=== PATIENT | female | born 1960 | race Caucasian/White ===

== ENCOUNTER 2018-04-03 16:17 | Emergency (ER) | payer BC ==
[~2018-04-03] VITALS: Ht 162.6 cm; Wt 59.9 kg
[2018-04-03] MEDS ORDERED: SYNTHROID50 MCG (16:39)
== END 2018-04-03 18:31 | disposition home or self-care (01) ==
LOC: ER 16:17
DX: S39.012A Strain of muscle, fascia and tendon of lower back, initial encounter (principal); S33.8XXA Sprain of other parts of lumbar spine and pelvis, initial encounter; X50.0XXA Overexertion from strenuous movement or load, initial encounter; Y93.01 Activity, walking, marching and hiking; Y92.832 Beach as the place of occurrence of the external cause; Y99.8 Other external cause status